=== PATIENT | male | born 1995 | race Caucasian/White ===

== ENCOUNTER 2016-10-27 22:45 | Emergency (ER) | payer MEDICAID ==
[2016-10-28 00:33] LABS: BASOPHILS 0.7 % (0.0-2.0); HEMOGLOBIN 13.4 g/dL (13.5-17.5); LYMPHOCYTES 36.3 % (15-50); MCH 31.3 pg (26.0-34.0); MCHC 35.3 g/dL (31.0-37.0); MCV 88.8 fL (80.0-100.0); MEAN PLATELET VOLUME 10.4 fL (7.4-10.4); MONOCYTES 17.6 % (2-11); NEUTROPHILS 43.4 % (40-80); PLATELET COUNT 157 10x3/uL (130-400); RBC 4.28 10x6/uL (4.20-6.10); RDW 12.3 % (11.5-14.5); WBC 4.1 10x3/uL (4.8-10.8)
== END 2016-10-28 02:08 | disposition home or self-care (01) ==
LOC: D.ER 22:45
PROVIDERS: Physician Assistant Medical
DX: B34.9 Viral infection, unspecified (principal)